=== PATIENT | male | born 1960 | race Caucasian/White ===

== ENCOUNTER 2016-07-26 21:44 | Emergency (ER) | payer OTHER ==
[2016-07-26 21:56] VITALS: BP 125/89; PULSE 77; RESP 18; TEMP 98.2; O2SAT 95
[2016-07-26] MEDS ORDERED: TDAP ADULT 0.5 ML INJ (BOOSTRIX) IM ONE (22:23)
[2016-07-26] MEDS ORDERED: CEPHALEXIN 500MG PREPACK#4 BTL TAKEHOME ONE (22:35)
[2016-07-26] MEDS ORDERED: CIPROFLOXACIN 250 MG TAB PO ONE (22:53)
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
== END 2016-07-26 23:25 | disposition home or self-care (01) ==
DX: L03.116 Cellulitis of left lower limb (principal); Z87.891 Personal history of nicotine dependence; Z23 Encounter for immunization